=== PATIENT | male | born 1960 | race Caucasian/White ===

== ENCOUNTER 2016-06-26 01:17 | Inpatient (IN) | payer BC, MEDICAID ==
[~2016-06-26] VITALS: Ht 165.1 cm; Wt 106.3 kg
--- NOTE | ~2016-06-26 | CATH ---
Cardiac Diagnostic + PCI Report Demographics Patient Name DEEDEE Calvillo Gender Male Date of 1960 Age 55 year(s) Patient Number [id number] Date of Study 06/27/2016 Visit Number [id number] Room Number 433 [employer] ID Ht 165.1 cm Wt 109.77 kg Accession Number [id number] BSA 2.15 m kg/m Referring Mike Corbin MD Primary Physician Physician Becca Lang MD Performing Christiana NOBLE Secondary Physician Physician Peerz Diagnostic Christiana NOBLE Assisting Physician Physician Perez Interventional Christiana NOBLE Physician Electric Deicer Inspector Physician Perez Findings and Conclusions Diagnostic Findings and Conclusion 1. Severe 3 vessel CAD. Diagnostic Recommendations 1.FFR to LAD. Interventional Findings and Conclusion 1. Positive FFR of LAD. 2. Severe 3 vessel CAD. Interventional Recommendations 1. CT surgery consult. Procedure Description The patient was brought to the diagnostic cardiac catheterization-laboratory in the fasting, non-sedated state. Informed consent was obtained in the written and verbal form after the risks and benefits were explained. The patient had no further questions and agreed to proceed. The planned puncture-incision site(s) were shaved and prepped with ChloraPrep and draped in the usual sterile manner. Conscious sedation, supplemental oxygen, and pain control medications were delivered by a registered nurse under physician guidance. Surface ECG rhythm, blood pressure measurement, and pulse oximetry were monitored throughout the procedure. Arterial access. The right radial access site was infiltrated with lidocaine. The vessel was entered with the Seldinger technique. A 6F sheath was advanced into the vessel and used for catheter placement. Selective left coronary angiography. A JL 3.5 catheter was advanced into the left coronary vessel ostium under Fluoroscopic guidance. Contrast was injected by hand. Images were obtained in multiple projections. iFR measurement was performed. The vessel was entered with a guiding catheter. The iFR wire was normalized and then advanced across the lesion. Measurements were taken. Arterial artery hemostasis was achieved with TR band. The patient was transferred to a regular nursing floor via cart accompanied by a nurse. The patient left the laboratory in stable condition. Diagnostic Cath Status: Urgent Interventional Cath Status: Urgent Procedure Procedure Type Diagnostic procedure PCI procedure:Additional Imaging:, FFR/iFR:, Initial Vessel Indications: NSTEMI, Hyperlipidemia, Hypertension, Diabetes and Chest pain. The procedure was explained in detail to the patient. Risks, complications and alternative treatments were reviewed. Written consent was obtained. Medications Reviewed with Patient prior to Procedure. Complications: No Complication. Angiographic Findings Dominance: Right Cardiac Arteries and Lesion Findings LAD: Lesion on Prox LAD: 50% stenosis . Devices used - VERRATA. Number of passes: 1. Coronary Tree Procedure Data Procedure Date Date: 06/27/2016Start: 12:57 PM Entry Locations - Percutaneous access was performed through the Right Radial artery (Primary location). A 6 Fr sheath was inserted. This was exchanged for a 6 Fr sheath. Hemostasis was successfully obtained using a TR band. Entry Comments: 6F radial sheath exchanged for a 6F radial sheath. Procedure Medications Order and Administration + + +---------+-------+ !Time !Medication !Dosage !Route ! + + +---------+-------+ !06/27/2016 !Versed !1 mg !I.V. ! !01:03 PM ! ! ! ! + + +---------+-------+ !06/27/2016 !Oxygen !2 l/min !NC ! !01:03 PM ! ! ! ! + + +---------+-------+ 06/27/2016 !SF Radial Cocktail: 200mcg Nitro, 2.5 mg! !I.A. ! !01:07 PM !Verapamil, 5000u Heparin ! ! ! + + +---------+-------+ 06/27/2016 !Fentanyl !25 mcg !I.V. ! !01:10 PM ! ! ! ! + + +---------+-------06/27/2016 !Heparin (ACC_3) !3000 !I.V. ! !01:12 PM ! !units ! ! + + +---------+-------06/27/2016 !Sodium Chloride !10 ml !I.V. ! !01:14 PM ! ! ! ! + + +---------+-------+ Devices Used - AGUIDE CATHETER 6FR FL 3.5 100CMwas used for:Fractional Flow [place] measurments. Contrast Material - Isovue 11687 ml Fluoroscopy Time: Diagnostic: 1:48 minutes. Total: 1:48 minutes. Fluoroscopy Dose: Diagnostic: 156 mGy. Total: 156 mGy. Estimated Blood Loss: 10 ml. Medical History Allergies - Penicillin. Risk Factors The patient risk factors include:obesity, treated hypercholesterolemia, hypertension, orally-treated diabetes mellitus, last creatinine: 0.9 mg/dl, creatinine clearance: 145.68 ml/min and dyslipidemia. Admission Data Admission Date: 06/26/2016 Admission Time: 03:56 AM Insurance Payors: Private health insurance. Clinical Evaluation Leading to Procedure - The patient's CAD presentation was assessed as: Non-STEMI. - The patient's anginal syndrome during the past two weeks was assessed as: Class IV according to the [place] Cardiovascular Society Classification System (CCS). Anti-anginal medications were prescribed during the past two weeks. The medication is: Beta Blockers. Hemodynamics Condition: Rest O2 Consumption: Estimated: 283.47Heart Rate: 105 bpm Pressures (mmHg) +-----+ + !Site !Pressure ! +-----+ + !AO !113/73 (91) ! +-----+ + Shunts Oxygen Values O2 Capacity 199.92 O2 Consumption 283.47 Discharge Data Discharge Date: 06/29/2016 Hospital Status: Inpatient Signatures
--- NOTE | ~2016-06-26 | CATH ---
Cardiac Diagnostic Report Demographics Patient Name DEEDEE Calvillo Gender Male Date of 1960 Age 55 year(s) Patient Number [id number] Date of Study 06/27/2016 Visit Number [id number] Room Number 433 Corporate ID Ht 165.1 cm Wt 109.77 kg Accession Number [id number] BSA 2.15 m kg/m Referring Mike Corbin MD Primary Physician Physician Performing Becca Lang MD Secondary Physician Physician Diagnostic Becca Lang MD Assisting Physician Physician Interventional Physician Marine Cargo Specialist Physician Findings and Conclusions Diagnostic Findings and Conclusion 1. Severe 3 vessel obstructive CAD Diagnostic Recommendations 1. FFR LAD 2. Refer for bypass surgery Procedure Description The patient was brought to the diagnostic cardiac catheterization laboratory in the fasting, non-sedated state. Informed consent was obtained in the written and verbal form after the risks and benefits were explained. The patient had no further questions and agreed to proceed. The planned puncture-incision site(s) were shaved and prepped with ChloraPrep and draped in the usual sterile manner. Conscious sedation, supplemental oxygen, and pain control medications were delivered by a registered nurse under physician guidance. Surface ECG rhythm, blood pressure measurement, and pulse oximetry were monitored throughout the procedure. Arterial access. The right radial access site was infiltrated with lidocaine. The vessel was entered with the Seldinger technique. A 6F sheath was advanced into the vessel and used for catheter placement. Radial cocktail was administered per protocol. Selective left coronary angiography. A JL3.5 catheter was advanced into the left coronary vessel ostium under Fluoroscopic guidance. Contrast was injected by hand. Images were obtained in multiple projections. Selective right coronary angiography. A JR4 catheter was advanced into the right coronary vessel ostium under fluoroscopic guidance. Contrast was injected by hand. Images were obtained in multiple projections. Hemostasis: The sheath(s) was sutured in place. A pressurized flush bag was connected to the side port of the sheath. The sheath(s) will be removed after FFR procedure. The patient was transferred to a regular nursing floor via cart accompanied by a nurse. The patient left the laboratory in stable condition. Hemostasis: The sheath(s) was sutured in place. A pressurized flush bag was connected to the side port of the sheath. The sheath(s) will be removed once the desired ACT has been met. Diagnostic Cath Status: Urgent Procedure Procedure Type Diagnostic procedure:Angiography:, Coronary Angios Indications: Chest discomfort, Elevated Troponin, Diabetes, Hyperlipidemia and Hypertension. The procedure was explained in detail to the patient. Risks, complications and alternative treatments were reviewed. Written consent was obtained. Medications Reviewed with Patient prior to Procedure. Complications: No Complication. Angiographic Findings Dominance: Right Cardiac Arteries and Lesion Findings LMCA: Normal (0% Stenosis). LAD: Abnormal. Lesion on Prox LAD: 50% stenosis . Lesion on 1st Dia% stenosis . LCx: Abnormal.Collaterals from Circumflex to RCA Lesion on Mid CX: 70% stenosis . RCA: Abnormal. Lesion on Prox RCA: 90% stenosis . Lesion on Mid RCA: 100% stenosis . Ramus: Abnormal. Lesion on Ramus: Proximal subsection.70% stenosis .The lesion was diffuse. Coronary Tree Procedure Data Procedure Date Date: 06/27/2016Start: 09:57 AMEnd: 10:52 AM Entry Locations - Percutaneous access was performed through the Right Radial artery (Primary location). A 6 Fr sheath was inserted. Unsuccessful closure attempt was performed using: a TR band. Hemostasis was successfully obtained using a pressurized flush bag which was connected to the sheath and it was sutured in place . Procedure Medications Order and Administration + + +-------+--------+ !Time !Medication !Dosage !Route ! + + +-------+--------+ !06/27/2016 !Versed !1 mg !I.V. ! !10:22 AM ! ! ! ! + + +-------+--------+ !06/27/2016 !Fentanyl !25 mcg !I.V. ! !10:22 AM ! ! ! ! + + +-------+--------+ !06/27/2016 !Sodium Chloride !10 ml !I.V. ! !10:22 AM ! ! ! ! + + +-------+--------+ !06/27/2016 !Oxygen !2 l/min!NC ! !10:22 AM ! ! ! ! + + +-------+--------+ 06/27/2016 !SF Radial Cocktail: 200mcg Nitro, 2.5 mg ! !I.A. ! !10:27 AM !Verapamil, 5000u Heparin ! ! ! + + +-------+--------+ Devices Used - ACATH 6FR FL3.5 CATHETER 100CMwas used for:Left coronary angiography. - ACATH 6F FR4 CATHETER 100CMwas used for:Right coronary angiography. Contrast Material - Isovue 55472 ml Fluoroscopy Time: Diagnostic: 3:12 minutes. Total: 3:12 minutes. Fluoroscopy Dose: Diagnostic: 767 mGy. Total: 767 mGy. Estimated Blood Loss: 8 ml. Medical History Allergies - Penicillin. Risk Factors The patient risk factors include:obesity, treated hypercholesterolemia, hypertension, orally-treated diabetes mellitus, last creatinine: 0.9 mg/dl, creatinine clearance: 145.68 ml/min and dyslipidemia. Admission Data Admission Date: 06/26/2016 Admission Time: 03:56 AM Insurance Payors: [employer] insurance. Clinical Evaluation Leading to Procedure - The patient's CAD presentation was assessed as: Non-STEMI. - The patient's anginal syndrome during the past two weeks was assessed as: Class IV according to the [place] Cardiovascular Society Classification System (CCS). Anti-anginal medications were prescribed during the past two weeks. The medication is: Beta Blockers. Hemodynamics Condition: Rest O2 Consumption: Estimated: 284.34Heart Rate: 106 bpm Pressures (mmHg) +-----+ + !Site !Pressure ! +-----+ + !AO !105/55 (73) ! +-----+ + Shunts Oxygen Values O2 Capacity 199.92 O2 Consumption 284.34 Signatures
--- NOTE | ~2016-06-26 | ECH ---
Transthoracic Echocardiography Report (TTE) Demographics Patient Name ELIAS MARK Date of Study 06/26/2016 Patient Number [id number] Visit Number [id number] Date of 1960 Room Number 309 Accession Number [id number] Gender Male Age 55 year(s) Referring Mike Corbin MD Marker Assembler Pamela Neri [facility] Physician Becca Lang MD Physician Interpreting [place] Jethro Marroquin MD Auto Body Technician Physician Supervising Ordering Physician Mike Corbin MD, MD/[facility] Nurse Stress Tie Mill Operator Conclusions Summary Technically fair exam. The estimated left ventricular ejection fraction is 60-65%. Moderate concentric left ventricular hypertrophy. Diastolic assessment reveals Grade I diastolic dysfunction. Procedure Type of Study TTE procedure:Echo Complete SF. Procedure Date Date: 06/26/2016 Start: 07:28 AM Technical Quality: Adequate visualization Indications:Atypical Chest Pain and Shortness of breath. Appropriate Use Criteria: 9 Height: 65 inches Weight: 242 pounds BSA: 2.15 m Rhythm: Within normal limits HR: 84 bpm BP: 156/78 mmHg M-Mode/2D Measurements LV Diastolic Dimension: 3.76 cm LV Systolic Dimension: 2.31 cm LV Septum Diastolic: 1.69 cm LV PW Diastolic: 1.62 cm AO Root Dimension: 2.34 cm Cardiac Output: 4.99 l/min LA Dimension: 3.46 cm Cardiac Index: 2.32 l/min*m LA volume index: 32 ml/m LVOT: 1.97 cm RV Base: 3.7 cm LVOT VTI: 19.51 cm RV Mid: 2.5 cm LV Stroke volume: 59.44 ml LV Stroke volume index: 27.65 ml/m Doppler Measurements AV Mean Gradient: 3.18 mmHg MV Peak E-Wave: 0.75 m/s LVOT Peak Velocity: 0.81 m/s MV Peak A-Wave: 0.87 m/s AV Area (Continuity):2.69 cm MV P1/2t: 65.5 msec MV Deceleration Time: 261.1 msec MV Area (PHT): 3.36 cm PV Peak Velocity: 1.03 m/s RA Area: 15.03 cm Findings Left Ventricle The left ventricle is normal in size . Moderate concentric left ventricular hypertrophy. Diastolic assessment reveals Grade I diastolic dysfunction. Right Ventricle Normal right ventricle structure and function. Left Atrium Normal left atrial size. Right Atrium Normal right atrial size. Mitral Valve Normal mitral valve structure and function. Aortic Valve Normal aortic valve structure and function. Tricuspid Valve Normal tricuspid valve structure and function. Pulmonic Valve Normal pulmonic valve structure and function. Pericardial Effusion No evidence of pericardial effusion. Miscellaneous Visualized portions of the aortic root and ascending aorta appear normal in size. Pleural Effusion No evidence of pleural effusion. Signature
--- NOTE | 2016-06-26 05:42 | ER ---
ADMIT: 06/26/2016 RM/LOC: 309 [facility] MR#: [id number] [address] [facility] [place] [address] DEEDEETERRILAMONTE Calvillo [address] [place] [address] Emergency Room Report SEX: M AGE: 55 : 1960 DATE: 06/26/2016 HISTORY OF PRESENT ILLNESS: The patient is a 55-year-old Macedonian-speaking male complaining of 9-hour history of left chest discomfort, radiating to his throat, associated with shortness of breath. Denies any nausea, diaphoresis, exacerbating or relieving maneuvers. Cardiac risk factors include hypertension, hyperlipidemia, type 2 diabetes, and gender. PAST MEDICAL HISTORY: ILLNESSES: Type 2 diabetes, hypertension, hyperlipidemia. OPERATIONS: None. ALLERGIES: PENICILLIN. MEDICATIONS: Please see nurse's MAR. SOCIAL HISTORY: , nonsmoker, nondrinker, no illicit drugs. FAMILY HISTORY: Negative per chart review. REVIEW OF SYSTEMS: A 12-point review of systems negative for all other systems, illnesses, or operations except as outlined above. PHYSICAL EXAMINATION: VITAL SIGNS: Temp 96.2, pulse 90, respirations 20, BP 178/87, SaO2 of 97%, weight 110 kilos. GENERAL: Nontoxic, non-diaphoretic without jaundice or icterus. HEENT: Normocephalic. No evidence of epistaxis, rhinorrhea, or otorrhea. NECK: Supple without lymphadenopathy or thyromegaly. CHEST: Clear. Breath sounds equal. Nontender to palpation. HEART: Regular rate and rhythm without murmur, gallop, or edema. ABDOMEN: Soft, nontender, nondistended without mass or megaly. Bowel sounds hypoactive. EXTREMITIES: No evidence of Homans sign, synovitis, or dermatitis. NEURO: EOMI. PERRLA. No evidence of drift, dysarthria, or ataxia. Gait normal. MENTAL STATUS: Alert, oriented, and cooperative without delusions, hallucinations, or abnormal thought content. MEDICAL DECISION MAKING: EKG shows sinus rhythm with old anterior septal WI changes. No ST-T wave change. No prior tracing. Chest x-ray, no acute findings. CTA chest negative for PE. Normal CBC. Elevated CRP 2.77, lactic 1.9. Alcohol negative. Lipase 138. CK 162, MB 1.6, troponin 0.073. D-dimer 1.19. BNP 67. UA negative. The patient was given Zofran, Protonix, Toradol, and GI cocktail on arrival with improvement, but not relief. Followed then by aspirin, nitroglycerin with further improvement in blood pressure and pain. Discussed findings with Dr. Mckeon, who agreed and gave orders to nursing staff. DIAGNOSES: ADMIT: 06/26/2016 RM/LOC: 309 [facility] MR#: [id number] [address] [id number] [address] [place] [address] Emergency Room Report SEX: M AGE: 55 : 1960 1. Atypical chest pain, rule out acute coronary syndrome. 2. Hypertension. 3. Type 2 diabetes. 4. Hyperlipidemia. RECOMMENDATION: Admit inpatient telemetry for Dr. Mckeon. ADMISSION AND DISCHARGE CONDITION: Stable. Patient is a full code. Tramaine Ji MD/ reinaldo JOB #: [id number] CC: Casey Mckeon MD, Attending Physician Casey Mckeon MD, Family Physician Casey Mckeon MD
--- NOTE | 2016-06-26 15:08 | CO ---
ADMIT: 06/26/2016 RM/LOC: 309 [facility] MR#: [id number] [address] [facility] [address] [place], [place] [address] ELIAS MARK [address] [place] [address] Consultation SEX: M AGE: 55 : 1960 DATE OF CONSULTATION: 06/26/2016 ATTENDING PHYSICIAN: Casey Mckeon CONSULTING PHYSICIAN: Shreya Hudson MD REASON FOR CONSULTATION: Chest pain, abnormal troponin. HISTORY OF PRESENT ILLNESS: Mr. Mark is a pleasant 55-year-old, Latin- [place] male, whom I was asked to consult on request of Dr. Mckeon with a problem of chest pain. He presented this morning with some chest discomfort that occurred yesterday afternoon at 04:00 p.m. It was mid sternal, radiating up into the jaw, rated it as 2/10. He was little short of breath, but denies any nausea or diaphoresis with this. He never experienced any pain like this before. It lasted until he came to the ER and they gave something in the IV and under his tongue. He states he is fairly inactive because of previous disability, so this pain occurred at rest and nothing made it worse or better. PAST MEDICAL HISTORY: Includes: 1. Diabetes. 2. History of work-related injury. MEDICATIONS: Currently are unknown. ALLERGIES: NO KNOWN. FAMILY HISTORY: There is no family history of premature coronary disease. SOCIAL HISTORY: He is disabled because of a work-related injury. He is a nonsmoker, who smoked when he was young. Nondrinker. He is . is present. REVIEW OF SYSTEMS: A full 10-point review of systems was obtained and deemed to be negative except the pertinent dictated positive in HPI. PHYSICAL EXAMINATION: VITAL SIGNS: Today his blood pressure is 156/78 with a pulse of 94, temp 98.2. His weight is 242 pounds. GENERAL: He is a pleasant, well-nourished, and well-developed white male, in no acute distress. Alert and oriented x3. NECK: Shows brisk carotid upstrokes. No JVD or bruit. CHEST: Clear. HEART: Regular. ABDOMEN: Soft. EXTREMITIES: No cyanosis, clubbing, or edema. MUSCULOSKELETAL: Exam is normal. NEUROLOGIC: Exam is normal. SKIN: [place], warm, and dry. LABORATORY AND ANCILLARY DATA: Sodium 138, potassium 3.8, BUN 12, creatinine ADMIT: 06/26/2016 RM/LOC: 309 [facility] MR#: [id number] [address] [address] ELIAS MARK [address] [place] [address] Consultation SEX: M AGE: 55 : 1960 of 0.9. Troponin of 0.073, CK is 162, MB is 1.6. Repeat labs are pending. Blood glucose is 139. White blood cell count 8.1 with hemoglobin 14.7, and a platelet count of 206,000. Chest CTA shows no evidence of pulmonary embolus. EKG shows no ST-T segment changes concerning of ischemia or infarction. ASSESSMENT AND PLAN: 1. Chest pain. 2. Diabetes mellitus. 3. Abnormal troponin. 4. Hypertension. His symptoms certainly are concerning for unstable angina. We will continue to trend his enzymes. Check an echocardiogram and stress test. If his troponin continues to increase, consider cardiac cath, otherwise, await stress and echo results. The patient has already had an IV contrast this morning with a CTA of his chest, so we will hold off on cardiac catheterization for at least 24 hours. Continue with IV fluids. Make sure he has been on a beta- nik, aspirin, statin, and monitor his response. Shreya Hudson MD/ reinaldo JOB #: [id number] CC: Casey Mckeon, Attending Physician Casey Mckeon, Family Physician
--- NOTE | 2016-06-27 07:07 | HP ---
ADMIT: 06/26/2016 RM/LOC: 309 [facility] MR#: [id number] [id number] [place], [place] [id number] MACK MARK [address] [place] [address] History and Physical SEX: M AGE: 55 : 1960 DATE OF SERVICE: 06/26/2016 CHIEF COMPLAINT AND HISTORY OF PRESENT ILLNESS: Mack presented to the emergency room with an ill-defined pain left upper chest discomfort. He would not typify for me at least whether it was a sharp or dull pain. It is in the left upper chest and radiated to the throat. It started about 4 p.m. the afternoon prior to admission. A little shortness of breath with it but no nausea or sweats with it. At about 1 o'clock in the morning, he presented to the emergency room where Dr. Ji did an extensive evaluation on him. Notable was an EKG, which showed possible old anteroseptal infarct, but no acute changes. A CRP elevated at 2.7, troponin I mildly elevated at 0.073, mild elevation of D-dimer. Pertinent negatives were negative. CTA of the chest, negative chest x-ray. He was treated in the emergency room with Zofran, Protonix, Toradol, GI cocktail, aspirin, and nitroglycerin. His pains, which started out 8-9 dropped to 5 and then later to 3 and is now 2. He has been admitted to a telemetry level of care. History is little difficult because he is very hard of hearing, and he does not speak [place]. I did not get a history that he has had any of this before, and he is otherwise not felt ill recently nor has he had any recent injuries that would necessarily cause his chest pain. PAST MEDICAL HISTORY: He has had no cardiac workup to any of his knowledge in the past. He has type 2 diabetes. Apparently, takes metformin for it, but does not check his sugars at home. Also, history of hypertension, GERD, hyperlipidemia, erectile dysfunction, and obesity. OPERATIONS: None. ALLERGIES: PENICILLIN. CURRENT MEDICATIONS: We do not have his list. He no longer comes to Family Practice, but it sounds like he takes: 1. Metformin. 2. Lipitor. 3. Omeprazole. 4. Probably valsartan. 5. Possibly glimepiride. 6. Possibly Wellbutrin XL. We are going to await confirmation from their actual medications in the pharmacy. FAMILY HISTORY: Negative for coronary artery disease in any first-degree relatives. SOCIAL HISTORY: He is . I believe he is not working because of some back issues. He does not smoke or drink. REVIEW OF SYSTEMS: CONSTITUTIONAL: No chills or fever. CV: As in the above history. RESPIRATORY: Little short of breath, but not ADMIT: 06/26/2016 RM/LOC: 309 [facility] MR#: [id number] [address] [place] [id number] MACK MARK [address] [place] [address] History and Physical SEX: M AGE: 55 : 1960 coughing. ENT: No sore throat. He has chronic hearing loss due to noise exposure. He is expecting to get hearing aids soon. EYES: No visual complaints. GI: Denies for me any nausea, vomiting, or stool changes. : Years ago, he passed a ureteral stone. Otherwise, no genitourinary issues at this time. MUSCLE, BONE, AND JOINT: He has chronic back pain. Has some chronic arthritic pains. PSYCH: He has issues with anxiety and depression. No recent flare up. NEURO: Nothing new. HEMATOLOGIC: No history of bleeding or blood clots. PHYSICAL EXAMINATION: GENERAL: He is currently well appearing, appears in no distress. Certainly, does not appear to be in pain. VITAL SIGNS: Most recent vital signs, temp 98.2, pulse 94, respirations 20, BP 156/78, O2 saturation 96% on room air. ENT: Obviously hard of hearing. Throat is clear. No nasal discharge. EYES: Pupils are equal and reactive. Sclerae are clear. NECK: No bruits. No masses, no thyromegaly. HEART: Regular rhythm. No murmurs are heard. LUNGS: Clear to auscultation throughout and no respiratory distress. ABDOMEN: Obese male, nontender to palpation. No masses felt. No guarding or rebound. No inguinal hernias. GENITALIA: Unremarkable to cursory exam. RECTAL: Not performed. EXTREMITIES: Upper extremities, normal appearance. Lower extremities, normal appearance. No significant edema in his lower extremities and normal pulses in his feet. BACK: Nontender to palpation. NEURO: Grossly intact. PSYCH: He appears calm and not overtly anxious or depressed. Chest wall is really not tender to palpation of the left upper chest nor to reproduce any pain in that area with various chest wall movements. ADMIT: 06/26/2016 RM/LOC: 309 [facility] MR#: [id number] [address] [id number] MACK MARK [address] [place] [address] History and Physical SEX: M AGE: 55 : 1960 IMPRESSION: 1. Atypical chest pain. 2. Chronic hypertension. 3. Chronic type 2 diabetes. 4. Dyslipidemia. 5. Obesity. DISCUSSION: Although, the pain is atypical, he does certainly have lots of cardiac risk factors. So, I believe does merit Cardiology consult and most likely some type of risk stratification procedure. In the meantime, we will trend his cardiac enzymes. Repeat his EKG and order transthoracic echocardiogram. Casey Mckeon MD/ reinaldo JOB #: [id number] CC: Casey Mckeon, Attending Physician Casey Mckeon, Family Physician
[2016-06-30] MEDS ORDERED: GLUCOPHAGE-DPS500 MG PO (11:19)
[2016-06-30] MEDS ORDERED: AMARYL DPS4 MG PO (11:19)
[2016-06-30] MEDS ORDERED: DIOVAN160 MG PO (11:19)
[2016-06-30] MEDS ORDERED: LIPITOR DPS20 MG PO (11:19)
[2016-06-30] MEDS ORDERED: CELEBREX200 MG PO (11:19)
[2016-06-30] MEDS ORDERED: ASA CHILDREN'S81 MG PO (11:20)
[2016-06-30] MEDS ORDERED: CARVEDILOL3.125 MG PO (11:20)
[2016-06-30] MEDS ORDERED: ZESTRIL DPS5 MG PO (11:20)
--- NOTE | 2016-07-06 07:50 | DS ---
ADMIT: 06/26/2016 RM/LOC: 433 [facility] MR#: [id number] [address] [address] MACK TREVIZO [address] [place] [address] General Discharge Summary SEX: M AGE: 55 : 1960 ADMISSION DATE: 06/26/2016 DISCHARGE DATE: 06/29/2016 FINAL DIAGNOSES: 1. Non-ST segment elevation myocardial infarction. 2. Three-vessel coronary artery disease. 3. Type 2 diabetes. 4. Hypertension. 5. Dyslipidemia. 6. Obesity. HISTORY OF PRESENT ILLNESS: Mack Trevizo is admitted to acute care on June 26 after presenting to the emergency room with ill-defined left upper chest discomfort radiating into the throat. It started at 4:00 p.m. today prior to admission. He was a little short of breath with it. For more details, see the history and physical examination and electronic record. He had a mildly elevated troponin I in the emergency room at 0.073 with later a bigger increase I believe in the range of 2.0. He was treated in the emergency room with Zofran, Protonix, Toradol, GI cocktail, aspirin, nitroglycerin. Pain which started out at 8 to 9 dropped to 5 and then later to 3. When I saw him at the bedside, it was 2. PAST MEDICAL HISTORY: Notable for the other diagnoses listed above, for which he has been managed medically. Initial exam at the bedside revealed him to be in no distress with stable vital signs, sinus rhythm. Cardiorespiratory exam was unremarkable. There was no chest wall tenderness on exam. Smith further studies included an EKG, which suggest at least possibility of a prior septal infarct, but there was no serial change in EKGs. Echocardiogram showed an EF of 60%-65%. Concentric LVH. Grade 1 diastolic dysfunction. No wall motion abnormalities. Cardiac catheterization revealed severe 3-vessel coronary artery disease. See Dr. Hudson's formal report. Smith positive positive lab findings include a troponin which went to 2.12 at 8 hours after admission and then later up to 5.55 after his heart catheterization. His electrolytes were unremarkable. D-dimer was elevated at 2.77. Lactate was normal. Bedside Accu-Cheks were all between 100 and 200. CBC ADMIT: 06/26/2016 RM/LOC: 433 [facility] MR#: [id number] [address] [address] MACK TREVIZO [address] [place] [address] General Discharge Summary SEX: M AGE: 55 : 1960 unremarkable. Creatinine normal at 0.9. CTA of the chest was also done in the emergency room due to the elevated D-dimer showing no evidence of pulmonary embolus and prior granulomatous disease. The patient was admitted to acute care. Cardiology consultation was undertaken. Previously mentioned studies including cardiac catheterization studies were undertaken. He remained medically stable throughout his hospital course. Dr. Hudson, consulting mailroom assistant recommended due to the severity of his three-vessel disease that he be referred for coronary artery bypass surgery. The patient initially refused, but later agreed that he would go to [facility] for this, so he was transferred in stable condition on September 29. Casey Mckeon MD/ reinaldo JOB #: [id number] CC: Casey Mckeon MD, Attending Physician Casey Mckeon MD, Family Physician
== END 2016-06-29 14:50 | disposition short-term general hospital (02) | DRG 281 ==
LOC: ER 01:17 → 3ICU 03:56 → 4PCU 03:56 → 3ICU 03:56 → 4PCU 17:51
PROVIDERS: ADMIT Family Medicine
PROC: 4A033BC Measurement of Arterial Pressure, Coronary, Percutaneous Approach (ICD-10-PCS; principal; 2016-06-27)
PROC: B2111ZZ Fluoroscopy of Multiple Coronary Arteries using Low Osmolar Contrast (ICD-10-PCS; principal; 2016-06-27)
DX: I21.4 Non-ST elevation (NSTEMI) myocardial infarction (principal); Z68.41 Body mass index [BMI] 40.0-44.9, adult; E11.9 Type 2 diabetes mellitus without complications; I25.10 Atherosclerotic heart disease of native coronary artery without angina pectoris; I10 Essential (primary) hypertension; R07.89 Other chest pain; E78.5 Hyperlipidemia, unspecified; R79.89 Other specified abnormal findings of blood chemistry; H91.90 Unspecified hearing loss, unspecified ear; K21.9 Gastro-esophageal reflux disease without esophagitis; E66.9 Obesity, unspecified; Z87.891 Personal history of nicotine dependence; Z79.84 Long term (current) use of oral hypoglycemic drugs